=== PATIENT | female | born 1975 | race Caucasian/White ===

== ENCOUNTER → 2016-10-07 | Outpatient (CLI) | payer BC ==
--- NOTE | 2016-10-07 15:35 | REPMRS ---
Patient History The patient states she had a clinical breast exam in 10/2016. Patient is nulliparous. Family history of pancreatic cancer in paternal grandmother at age 50 or over. Digital Woman Screen Mammo: October 07, 2016 - Exam #: [id number] Bilateral CC and MLO view(s) were taken. Technologist: Lisa Nolan, Technologist Prior study comparison: October 08, 2015, digital woman screen mammo performed at [facility]. FINDINGS: The breast tissue is heterogeneously dense. This may lower the sensitivity of mammography. There is a moderate amount of heterogeneously dense fibroglandular tissue which is fairly symmetric. There is no interval development of dominant mass, architectural distortion, or clustered microcalcification typical of malignancy. There has been no change in the appearance of the mammogram from the prior studies. ASSESSMENT: BI-RADS/ACR category 1 mammogram. Negative. Recommendation Routine screening mammogram of both breasts in 1 year (for women over age 40). This mammogram was interpreted with the aid of an FDA-approved computer-aided dectection system. Electronically Signed By: Emanuel Smith MD 10/07/16 [id number]
== END ==
LOC: M WHC 09:26
PROVIDERS: ATTEND Nurse Practitioner Family
DX: Z12.31 Encounter for screening mammogram for malignant neoplasm of breast (principal); Z92.89 Personal history of other medical treatment

== ENCOUNTER → 2017-10-08 | Outpatient (CLI) | payer BC | LOC: M WHC 09:33 | DX: Z12.31 Encounter for screening mammogram for malignant neoplasm of breast (principal) | CPT/HCPCS: G0123 ==

== ENCOUNTER → 2017-10-08 | Outpatient (REF) | payer BC ==
[2017-10-12 15:00] LABS: HPV HYBRID CAPTURE II Negative (Negative)
== END ==
LOC: M SFHCWAGY 09:33
DX: Z12.4 Encounter for screening for malignant neoplasm of cervix (principal)

== ENCOUNTER → 2018-09-19 | Outpatient (CLI) | payer BC ==
[~2018-09-19] MED LIST: PROHANCE 279.3MG/ML 15ML VIAL (A9576) As Ordered ONE
--- NOTE | 2018-09-20 09:36 | REP ---
MRI BILATERAL BREAST WITH AND WITHOUT CONTRAST: HISTORY: Lump left breast with negative mammogram and ultrasound, pain. TECHNIQUE: Multiple sequences were obtained in the axial, coronal and sagittal planes prior to and following the intravenous administration of 11 mL ProHance. Imaging was pre and post T1 fat sat imaged. The images are evaluated by [email or web address] software including CAD and color overlay images as well as MIP reconstruction images. There is extreme large amount of dense fibroglandular tissue bilaterally. There is moderate background parenchymal enhancement bilaterally. No suspicious mass is seen. No morphologic abnormality is seen. Bilateral axillary lymph nodes are normal in size 3 mm cyst is seen in the medial right breast two adjacent cysts are seen in the inferomedial left breast measuring 6 mm maximally. Even more inferiorly there is a 3 mm cyst in the inferomedial left breast. IMPRESSION: BI-RADS Category 2 benign bilateral breast MRI. No suspicious mass or morphologic abnormality. A few tiny cysts are seen in the inferomedial left breast and a single subcentimeter cyst is seen in the medial right breast. BIRADS 2: BI-RADS/ACR category 2 mammogram. Benign Findings. Electronically Signed by Garret Rothman MD 09/20/2018 04:28 P
== END ==
LOC: M RAD 15:50
PROVIDERS: ATTEND Surgery
DX: N60.01 Solitary cyst of right breast (principal); N60.12 Diffuse cystic mastopathy of left breast; N64.4 Mastodynia; N63.20 Unspecified lump in the left breast, unspecified quadrant
CPT/HCPCS: A9576; C8908

== ENCOUNTER → 2019-10-09 | Outpatient (CLI) | payer BC ==
[2019-10-09 10:11] LABS: BASO % 0.3 % (0.0-1.0); EOS # 0.1 10^3/uL (0.0-0.5); EOS % 0.3 % (0.0-3.0); HEMATOCRIT 39.9 % (36.0-47.0); HEMOGLOBIN 13.2 g/dl (12.0-15.5); LYMPH # 1.3 10^3/uL (1.5-5.0); LYMPH % 8.5 % (24.0-44.0); MEAN CORPUSCULAR HEMOGLOBIN 31.7 pg (27.0-33.0); MEAN CORPUSCULAR HGB CONC 33.1 g/dl (32.0-36.5); MEAN CORPUSCULAR VOLUME 95.9 fl (80.0-96.0); MONO # 1.9 10^3/uL (0.0-0.8); MONO % 12.7 % (0.0-5.0); NEUTROPHILS # 11.8 10^3/uL (1.5-8.5); NEUTROPHILS % 77.7 % (36.0-66.0); PLATELET COUNT, AUTOMATED 282 10^3/uL (150-450); RED BLOOD COUNT 4.16 10^6/uL (4.00-5.40); WHITE BLOOD COUNT 15.2 10^3/uL (4.0-10.0)
[2019-10-09 10:37] LABS: ALBUMIN 3.3 GM/DL (3.2-5.2); ALT/SGPT 20 U/L (12-78); BILIRUBIN,TOTAL 0.2 MG/DL (0.2-1.0); BLOOD UREA NITROGEN 8 MG/DL (7-18); CARBON DIOXIDE LEVEL 25 MEQ/L (21-32); CHLORIDE LEVEL 100 MEQ/L (98-107); CREATININE FOR GFR 0.99 MG/DL (0.55-1.30); GLOMERULAR FILTRATION RATE > 60.0 (>58); GLUCOSE, FASTING 247 MG/DL (70-100); POTASSIUM SERUM 3.9 MEQ/L (3.5-5.1); SODIUM LEVEL 134 MEQ/L (136-145); TOTAL PROTEIN 7.2 GM/DL (6.4-8.2)
--- NOTE | 2019-10-09 12:28 | REP ---
REASON: Pyrexia. PRIORS: None. FINDINGS: The superior mediastinal structures are midline. The cardiac silhouette is unremarkable in size, shape, and position. The diaphragmatic surfaces of the lungs are regular, and the costophrenic angles are clear. The pulmonary tamez are clear. The imaged osseous structures are intact. IMPRESSION: There is no acute cardiopulmonary disease. Electronically Signed by Mynor Zarco DO 10/09/2019 01:23 P
== END ==
LOC: M WUC 08:59
PROVIDERS: ATTEND Physician Assistant
DX: R50.9 Fever, unspecified (principal); R73.9 Hyperglycemia, unspecified

== ENCOUNTER → 2020-01-25 | Outpatient (CLI) | payer BC ==
--- NOTE | 2020-01-25 15:38 | REPMRS ---
Patient History The patient states she had a clinical breast exam in 01/2020. Patient is nulliparous. Family history of pancreatic cancer at age 50 or over in paternal grandmother, colorectal cancer at age 50 or over in paternal grandfather. No Hormone Replacement Therapy 3D TOMOSYNTHESIS WAS PERFORMED. [facility] lifetime risk for breast cancer is 13.8%. Volpara breast density d. Digital Woman Screen Mammo: January 25, 2020 - Exam #: [id number] Bilateral CC and MLO view(s) were taken. Technologist: Lisa Nolan, Technologist Prior study comparison: October 08, 2017, bilateral digital woman screen mammo performed at [facility]. October 07, 2016, digital woman screen mammo performed at [facility]. FINDINGS: The breast tissue is extremely dense which could obscure a lesion on mammography. There has been no change in the appearance of the mammogram from the prior studies. There is a moderate amount of residual fibroglandular tissue which is fairly symmetric. There is no interval development of dominant mass, areas of architectural distortion, or clustered microcalcification typical of malignancy. Assessment: BI-RADS/ACR category 1 mammogram. Negative Mammogram. Recommendation Routine screening mammogram in 1 year (for women over age 40). This mammogram was interpreted with the aid of an FDA-approved computer-aided dectection system. Electronically Signed By: Garret Rothman MD 01/25/20 3050
== END ==
LOC: M WHC 13:55
PROVIDERS: ATTEND Nurse Practitioner Family
DX: Z12.31 Encounter for screening mammogram for malignant neoplasm of breast (principal)

== ENCOUNTER 2020-06-17 13:18 | Emergency (ER) | payer BC, OTHER ==
[~2020-06-17] VITALS: Ht 162.6 cm; Wt 56.8 kg
[2020-06-17 14:04] LABS: BASO % 0.5 % (0.0-1.0); EOS # 0.2 10^3/uL (0.0-0.5); EOS % 3.1 % (0.0-3.0); HEMATOCRIT 41.4 % (36.0-47.0); HEMOGLOBIN 13.8 g/dl (12.0-15.5); LYMPH # 2.3 10^3/uL (1.5-5.0); LYMPH % 37.6 % (24.0-44.0); MEAN CORPUSCULAR HEMOGLOBIN 30.6 pg (27.0-33.0); MEAN CORPUSCULAR HGB CONC 33.3 g/dl (32.0-36.5); MEAN CORPUSCULAR VOLUME 91.8 fl (80.0-96.0); MONO # 0.5 10^3/uL (0.0-0.8); MONO % 7.4 % (2.0-8.0); NEUTROPHILS # 3.1 10^3/uL (1.5-8.5); NEUTROPHILS % 51.2 % (36.0-66.0); PLATELET COUNT, AUTOMATED 261 10^3/uL (150-450); RED BLOOD COUNT 4.51 10^6/uL (4.00-5.40); WHITE BLOOD COUNT 6.1 10^3/uL (4.0-10.0)
--- NOTE | 2020-06-17 14:05 | REP ---
INDICATION: Syncope. COMPARISON: Comparison study March 18, 2014.. TECHNIQUE: Helical scanning is acquired. 5 mm axial images were reformatted. Coronal MPR images were generated. FINDINGS: Bone window settings demonstrate an intact bony calvarium. There is no evidence of skull fracture or incidental bony calvarial lesion. The visualized paranasal sinuses appear clear. No intraorbital abnormality is seen. On soft tissue window setting images; the lateral, third, and fourth ventricles are normal in size and position. Rothman-white differentiation pattern is normal above and below the tentorium. There are is no evidence of intracranial hemorrhage. No mass, edema, infarction, or midline shift is seen. No extra-axial fluid collection is appreciated. IMPRESSION: Negative noncontrast head CT. <Electronically signed by Emanuel Smith > 06/17/20 [id number]
--- NOTE | 2020-06-17 14:19 | REP ---
INDICATION: Syncope/near-syncope. COMPARISON: . PA and lateral chest dated 10/09/2019. TECHNIQUE: Portable AP chest with patient sitting. FINDINGS: The lung tamez are clear. Cardiac size is normal. The fern, mediastinum and skeletal structures are unremarkable. IMPRESSION: Essentially negative portable chest <Electronically signed by Garret Jules > 06/17/20 1417
[2020-06-17 14:44] LABS: ALBUMIN 3.7 GM/DL (3.2-5.2); ALT/SGPT 19 U/L (12-78); BILIRUBIN,DIRECT < 0.1 MG/DL (0.0-0.2); BILIRUBIN,TOTAL 0.3 MG/DL (0.2-1.0); BLOOD UREA NITROGEN 11 MG/DL (7-18); CALCIUM LEVEL 8.9 MG/DL (8.5-10.1); CARBON DIOXIDE LEVEL 25 MEQ/L (21-32); CHLORIDE LEVEL 104 MEQ/L (98-107); CK-MB VALUE MASS 1.2 NG/ML (<3.6); CPK CREATINE PHOSPHOKINASE 68 U/L (26-192); CREATININE FOR GFR 0.79 MG/DL (0.55-1.30); GLOMERULAR FILTRATION RATE > 60.0 (>58); GLUCOSE, FASTING 187 MG/DL (70-100); MAGNESIUM LEVEL 1.7 MG/DL (1.8-2.4); MB/CK RELATIVE INDEX 1.76 (< OR =4); POTASSIUM SERUM 3.4 MEQ/L (3.5-5.1); SODIUM LEVEL 137 MEQ/L (136-145); TOTAL PROTEIN 6.6 GM/DL (6.4-8.2); TROPONIN I < 0.02 NG/ML (< 0.10)
[2020-06-17 14:45] LABS: INR 0.89; PROTHROMBIN TIME 12.2 SECONDS (12.5-14.3)
[2020-06-17 14:46] LABS: PARTIAL THROMBOPLASTIN TIME 22.6 SECONDS (24.2-38.5)
[2020-06-17 16:30] LABS: RSV AMPLIFICATION NEGATIVE (NEGATIVE)
[2020-06-17] MEDS ORDERED: ATEN25TA PO (17:00)
[2020-06-17] MEDS ORDERED: VITMTA PO (17:00)
[2020-06-17 17:31] VITALS: BP 126/84
--- NOTE | 2020-06-17 22:14 | ECGEPIP ---
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
== END 2020-06-17 17:36 | disposition short-term general hospital (02) ==
LOC: EDBD 13:18 → M ED 13:18
DX: R55 Syncope and collapse (principal); Z88.0 Allergy status to penicillin; Z79.899 Other long term (current) drug therapy

== ENCOUNTER → 2020-10-19 | Outpatient (CLI) | payer OTHER ==
[~2020-10-19] MED LIST changes: +ATEN25TA PO; -PROHANCE 279.3MG/ML 15ML VIAL (A9576) As Ordered ONE; +VITMTA PO
--- NOTE | 2020-10-19 19:46 | REP ---
INDICATION: PAIN IN RIGHT ANKLE AND JOINTS OF RIGHT FOOT. COMPARISON: Ankle series this date TECHNIQUE: Four views FINDINGS: Shaft of the tibia and fibula are intact without fracture avulsion or focal lesion. See no abnormal soft tissue calcification or radiopaque foreign body. The visualized knee articulation, ankle and hindfoot show no acute finding. There is a small Achilles insertional spur evident. Some soft tissue swelling lateral aspect of the lower leg and ankle. IMPRESSION: Soft tissue swelling lateral aspect lower leg and ankle without visible or displaced fracture, avulsion, foreign body or other acute bony finding. <Electronically signed by Javier Trotter > 10/19/201941
--- NOTE | 2020-10-19 19:48 | REP ---
INDICATION: PAIN IN RIGHT ANKLE AND JOINTS OF RIGHT FOOT. COMPARISON: Right tibia fibula today TECHNIQUE: Four views FINDINGS: Distal tibia and fibula without fracture or focal lesion. Ankle mortise joint with symmetric and preserved. Mild soft tissue swelling distal lower leg and ankle laterally and anterolaterally. There is no talar dome osteochondral defect. Tiny spur at the inferior margin of the lateral malleolus. No definite avulsion fracture. Subtalar joints are grossly intact. Tiny Achilles insertional spur, actually better seen on the tibial series than this exam. The talonavicular and calcaneocuboid joints as well as tarsal articulations and TMT joints all grossly intact but limited in evaluation. IMPRESSION: 1. Soft tissue swelling anterolateral aspect ankle and distal lower leg without visible or displaced fracture, avulsion, disruption of the mortise joint, subtalar joint abnormality or other acute bony finding. <Electronically signed by Javier Trotter > 10/19/201943
== END ==
LOC: M RAD 15:20
PROVIDERS: ATTEND Physician Assistant
DX: M25.571 Pain in right ankle and joints of right foot (principal); M79.661 Pain in right lower leg

== ENCOUNTER → 2021-04-30 | Outpatient (CLI) | payer OTHER | LOC: M WHC 09:33 | PROVIDERS: ATTEND Nurse Practitioner Women's Health | DX: Z12.31 Encounter for screening mammogram for malignant neoplasm of breast (principal) ==

== ENCOUNTER → 2021-04-30 | Outpatient (REF) | payer OTHER | LOC: M SFHCWAGY 13:12 | PROVIDERS: ATTEND Nurse Practitioner Women's Health | DX: Z12.4 Encounter for screening for malignant neoplasm of cervix (principal) | CPT/HCPCS: 87624; G0123 ==

== ENCOUNTER → 2022-05-15 | Outpatient (CLI) | payer BC | LOC: M WHC 09:16 | PROVIDERS: ATTEND Nurse Practitioner Family | DX: Z12.31 Encounter for screening mammogram for malignant neoplasm of breast (principal); R92.2 Inconclusive mammogram ==

== ENCOUNTER → 2022-06-04 | Outpatient (CLI) | payer BC | LOC: M WHC 08:54 | PROVIDERS: ATTEND Nurse Practitioner Family | DX: R92.2 Inconclusive mammogram (principal) | CPT/HCPCS: 77065; G0279 ==